=== PATIENT | female | born 1970 | race Two or more races ===

== ENCOUNTER 2023-08-24 08:18 | Emergency (ER) | payer OTHER ==
[~2023-08-24] VITALS: Ht 167.6 cm; Wt 78.0 kg
[2023-08-24] MEDS ORDERED: ACETAMINOPHEN ES 500 MG TABLET ONE (09:06)
[2023-08-24] MEDS ORDERED: TRAMADOL HCL 50 MG TABLET ONE (09:06)
[2023-08-24] MEDS: ACETAMINOPHEN ES 500 MG TABLET PO ONE (09:12)
[2023-08-24] MEDS: TRAMADOL HCL 50 MG TABLET PO ONE (09:13)
[2023-08-24] MEDS ORDERED: TRAM-351 PO (12:47)
[2023-08-24 12:53] VITALS: BP 136/94; TEMP 98.1; O2SAT 98
== END 2023-08-24 12:56 | disposition home or self-care (01) ==
LOC: ER 08:24
DX: M25.561 Pain in right knee (principal); M25.562 Pain in left knee; M17.0 Bilateral primary osteoarthritis of knee; I10 Essential (primary) hypertension; Z60.2 Problems related to living alone
CPT/HCPCS: 73564-TC